=== PATIENT | female | born 1960 | race Caucasian/White ===

== ENCOUNTER 2016-05-02 12:36 | Emergency (ER) | payer OTHER ==
[~2016-05-02] VITALS: Ht 162.6 cm; Wt 104.5 kg
[2016-05-02] MEDS ORDERED: OXAYDO5 MG PO (14:57)
[2016-05-02 16:10] VITALS: BP 134/92
== END 2016-05-02 16:11 | disposition home or self-care (01) ==
LOC: EME 12:36
PROC: 2W3QX1Z Immobilization of Right Lower Leg using Splint (ICD-10-PCS; principal; 2016-05-02)
DX: S82.831A Other fracture of upper and lower end of right fibula, initial encounter for closed fracture (principal); W01.0XXA Fall on same level from slipping, tripping and stumbling without subsequent striking against object, initial encounter
CPT/HCPCS: 73610; 99281; 99284; J3010